=== PATIENT | male | born 1940 | race Two or more races ===

== ENCOUNTER 2023-05-05 13:51 | Emergency (ER) | payer OTHER ==
[~2023-05-05] VITALS: Ht 172.7 cm; Wt 72.6 kg
[2023-05-05] MEDS ORDERED: ARICEPT5 MG PO (14:28)
[2023-05-05 16:19] LABS: PH,URINE 7.5 (5.0-8.0); URINE APPEARANCE Clear; URINE BILIRRUBIN Negative (NEGATIVE); URINE BLOOD Negative; URINE COLOR Yellow; URINE GLUCOSE Negative (NEGATIVE); URINE LEUKOCYTE Negative; URINE NITRATE Negative; URINE PROTEIN Negative (NEGATIVE); URINE UROBILINOGEN 0.2 E.U./dl
[2023-05-05 16:21] LABS: HEMATOCRIT 46.5 % (39.0-48.0); HEMOGLOBIN 15.9 g/dL (13-16.00); MEAN CELL VOLUME 92.9 fL (80.0-100.00); MEAN CORPUSCULAR HEMOGLOBIN 31.8 pg (27.00-32.0); MEAN CORPUSCULAR HGB CONC 34.2 g/dl (32.0-36.0); PLATELET COUNT 217 K/uL (150-450)
[2023-05-05 16:23] LABS: URINE BACTERIA 26.3 uL (0.0-1933); URINE EPITHELIAL CELLS 0.3 uL (0.0-38.8); URINE WBC 0.6 uL (0.0-23.2)
[2023-05-05 16:37] LABS: CALCIUM 9.2 mg/dL (8.5-10.1); CREATININE SERUM 1.13 mg/dL (0.70-1.30); GFR 62.44; POTASSIUM 3.96 mEq/L (3.5-5.1)
== END 2023-05-05 19:27 ==
LOC: ER 13:52
PROVIDERS: Nurse Practitioner Family
DX: S00.93XA Contusion of unspecified part of head, initial encounter (principal); W19.XXXA Unspecified fall, initial encounter; Y93.9 Activity, unspecified; Y92.018 Other place in single-family (private) house as the place of occurrence of the external cause; Y99.9 Unspecified external cause status; E11.9 Type 2 diabetes mellitus without complications; Z79.84 Long term (current) use of oral hypoglycemic drugs; G30.9 Alzheimer's disease, unspecified; F02.80 Dementia in other diseases classified elsewhere, unspecified severity, without behavioral disturbance, psychotic disturbance, mood disturbance, and anxiety; I50.9 Heart failure, unspecified

== ENCOUNTER 2023-11-08 19:02 | Inpatient (IN) | payer OTHER ==
[~2023-11-08] VITALS: Ht 152.4 cm; Wt 68.0 kg
[~2023-11-08 19:02] MED LIST: ARICEPT5 MG PO
--- NOTE | 2023-11-08 19:18 | NUR ---
SE RECIBE MASCULINO ALERTA EN COMPANIA DE HIJA QUIEN VERBALIZA "EL DEDO SE PUSO KAREY HACE DOS CRUZ". SE OBSERVA PHAM DEDO DE PIE IZQ COLOR KAREY CON BORDES ENROJECIDOS Y CALIENTES AL TACTO. SE ROSANA S/V Y SE UBICA.
[2023-11-08] MEDS ORDERED: VANCOMYCIN HCL 1,000 MG VIAL ONE (19:59)
[2023-11-08] MEDS ORDERED: 0.9 % SODIUM CHLORIDE 500 ML IV ONE (20:00)
[2023-11-08] MEDS ORDERED: VANCOMYCIN HCL 1,000 MG VIAL IV ONE (20:00)
--- NOTE | 2023-11-08 20:02 | NUR ---
PTE ALERTA Y ORIENTADO X3, RN FRY ORIENTA SOBRE TX MEDICO Y EL MISMO REFIERE ACEPTAR. CANALIZA Y COLECTA MUESTRAS DE LAB BAJO MEDIDAS ASEPTICAS. ADMINISTRA MED SAM ORDEN MEDICA Y PTE NO PRESENTA REACCION. REALIZA EKG Y PRESENTA A . PENDIENTE A REALIZAR XRAY.
[2023-11-08 20:34] LABS: HEMATOCRIT 51.3 % (39.0-48.0); HEMOGLOBIN 17.3 g/dL (13-16.00); MEAN CELL VOLUME 95.1 fL (80.0-100.00); MEAN CORPUSCULAR HEMOGLOBIN 32.1 pg (27.00-32.0); MEAN CORPUSCULAR HGB CONC 33.8 g/dl (32.0-36.0); PLATELET COUNT 272 K/uL (150-450); RED BLOOD COUNT 5.39 M/uL (4.00-6.00); RED CELL DISTRIBUTION WIDTH 14.1 % (11.5-14.5)
[2023-11-08 20:39] LABS: ERYTHROCYTE SEDIMENTATION RATE 6 mm/hr
[2023-11-08 21:01] LABS: ALBUMIN 3.5 gm/dL (3.4-5.0); BILIRUBIN TOTAL 0.95 mg/dL (0.3-1.2); CALCIUM 9.5 mg/dL (8.5-10.1); CREATININE SERUM 0.83 mg/dL (0.70-1.30); GFR 88.92; GLOBULINA 4.5 G/DL (2.4-3.5); POTASSIUM 5.02 mEq/L (3.5-5.1)
[2023-11-08 21:02] LABS: ABG PH 7.441 (7.35-7.45); ABG PO2 78.1 mmHg (80-100); ABG pCO2 37.9 mmHg (35-45); BASE EXCESS 1.3 mmol/l; BICARBONATE 25.2 mmol/l (23-25); Tco2 26.4 mmol/l
[2023-11-08 21:11] LABS: allen test SATISFACTORY; o2 21 %; puncture site RADIAL RIGHT
[2023-11-08 21:13] LABS: C-REACTIVE PROTEIN 2.01 MG/DL (0.00-0.29)
[2023-11-08] MEDS ORDERED: ENOXAPARIN SODIUM 40 MG/0.4 ML SYRINGE SUBCUTANEO SCH (21:43)
[2023-11-08] MEDS ORDERED: DEXTROSE 50 % IN WATER 0.5 G/ML DISP.SYRIN IV PRN (21:45)
[2023-11-08] MEDS ORDERED: FUROsemide 20 MG/2 ML VIAL IV SCH (21:45)
[2023-11-08] MEDS ORDERED: INSULIN LISPRO 1,000 UNIT/10 ML UNITS SUBCUTANEO PRN (21:45)
[2023-11-08] MEDS ORDERED: ACETAMINOPHEN 500 MG GEL..CAP PO PRN (21:45)
[2023-11-08 22:02] LABS: ALT/SGPT 51 U/L (12-78); AST/SGOT 45 U/L (15-37); LDH 218 U/L (87-241); PHOSPHOKINASE CREATININE 61 U/L (39-308)
[2023-11-08] MEDS ORDERED: FUROsemide 20 MG/2 ML VIAL ONE (22:27)
[2023-11-08] MEDS ORDERED: ENOXAPARIN SODIUM 40 MG/0.4 ML SYRINGE SUBCUTANEO ONE (22:28)
[2023-11-09] MEDS ORDERED: CEFEPIME HCL 2,000 MG VIAL ONE (00:43)
[2023-11-09] MEDS ORDERED: CEFEPIME HCL 2,000 MG in 0.9 % SODIUM CHLORIDE 100 ML IV SCH ×2 (01:00→21:00)
[2023-11-09 01:13] LABS: INR 1.11
[2023-11-09] MEDS ORDERED: 0.9 % SODIUM CHLORIDE 1,000 ML IV SCH ×2 (07:15)
[2023-11-09] MEDS ORDERED: SODIUM CHLORIDE 0.45 % 1,000 ML IV SCH (07:15)
[2023-11-09 07:57] VITALS: O2SAT 96
[2023-11-09 08:22] VITALS: BP 145/86; O2SAT 96
[2023-11-09] MEDS ORDERED: MEMANTINE HCL 10 MG TABLET PO SCH (09:00)
[2023-11-09] MEDS ORDERED: FAMOTIDINE/PF 20 MG in 0.9 % SODIUM CHLORIDE 8 ML IV PUSH SCH (09:00)
[2023-11-09] MEDS ORDERED: LOSARTAN POTASSIUM 50 MG TABLET PO SCH (09:00)
[2023-11-09] MEDS ORDERED: VANCOMYCIN HCL 1,000 MG VIAL IV SCH (09:00)
[2023-11-09] MEDS ORDERED: LOSARTAN POTASSIUM 100 MG TABLET PO SCH (09:00)
[2023-11-09 12:53] VITALS: O2SAT 94
[2023-11-09 16:00] VITALS: BP 146/90; O2SAT 97
[2023-11-09 16:34] VITALS: O2SAT 78
[2023-11-09] MEDS ORDERED: DONEPEZIL HCL 5 MG TABLET PO SCH (17:00)
[2023-11-09 19:33] VITALS: O2SAT 97
[2023-11-10] VITALS (8 sets, daily range): BP systolic 138–160; BP diastolic 81–90; O2SAT 90–100
[2023-11-10 07:23] LABS: HEMOGLOBIN 16.3 g/dL (13-16.00); MEAN CELL VOLUME 94.6 fL (80.0-100.00); MEAN CORPUSCULAR HEMOGLOBIN 32.1 pg (27.00-32.0); MEAN CORPUSCULAR HGB CONC 33.9 g/dl (32.0-36.0); PLATELET COUNT 231 K/uL (150-450); RED BLOOD COUNT 5.08 M/uL (4.00-6.00); RED CELL DISTRIBUTION WIDTH 13.9 % (11.5-14.5)
[2023-11-10 09:06] LABS: ALBUMIN 3.2 gm/dL (3.4-5.0); BILIRUBIN TOTAL 0.94 mg/dL (0.3-1.2); CALCIUM 8.7 mg/dL (8.5-10.1); CREATININE SERUM 0.7 mg/dL (0.70-1.30); GFR 108.23; GLOBULINA 3.8 G/DL (2.4-3.5); MAGNESIUM 1.9 mg/dL (1.8-2.4); POTASSIUM 3.79 mEq/L (3.5-5.1)
[2023-11-10 09:07] LABS: C-REACTIVE PROTEIN 2.2 MG/DL (0.00-0.29)
[2023-11-10 09:27] LABS: MYCOPLASMA PNEUMONIAE IGM NON REACTIVE (NO REACTIVE)
[2023-11-10] MEDS ORDERED: AMLODIPINE BESYLATE 5 MG TABLET PO SCH (17:00)
[2023-11-10 21:40] LABS: PLEURAL FLUID APPEARANCE CRYSTAL CLEAR; PLEURAL FLUID COLOR YELLOW
[2023-11-10 21:43] LABS: TP PLEURAL FLUID 3.2 g/dl
[2023-11-10 21:59] LABS: MONONUCLEAR 92 %; POLYMORPHONUCLEAR 8 %
[2023-11-11] VITALS (8 sets, daily range): BP systolic 104–145; BP diastolic 72–81; O2SAT 96–100
[2023-11-11] MEDS ORDERED: MEMANTINE HCL5 MG PO (08:02)
[2023-11-11] MEDS ORDERED: LORazepam 2 MG/ML VIAL IV PRN (08:30)
[2023-11-11] MEDS ORDERED: RISPERIDONE 1 MG TABLET PO SCH (09:00)
[2023-11-11] MEDS ORDERED: BUMETANIDE 1 MG TABLET PO SCH (09:00)
[2023-11-11] MEDS ORDERED: PANTOPRAZOLE SODIUM 40 MG TABLET.DR PO SCH (09:00)
[2023-11-11] MEDS ORDERED: METRONIDAZOLE/SODIUM CHLORIDE 100 ML IV SCH (17:00)
[2023-11-11] MEDS ORDERED: AMPICILLIN SODIUM/SULBACTAM NA 3,000 MG VIAL IV SCH (18:00)
[2023-11-11] MEDS ORDERED: CIPROFLOXACIN IN 5 % DEXTROSE 400 MG/200 ML PIGGYBAG IV SCH (21:00)
[2023-11-12] VITALS (7 sets, daily range): BP systolic 128–136; BP diastolic 68–79; O2SAT 96–100
[2023-11-13] VITALS (7 sets, daily range): BP systolic 129–155; BP diastolic 61–88; O2SAT 96–100
[2023-11-13 10:16] LABS: ABG PH 7.506 (7.35-7.45); ABG PO2 190.1 mmHg (80-100); ABG pCO2 40.3 mmHg (35-45); BASE EXCESS 7.5 mmol/l; BICARBONATE 31.2 mmol/l (23-25); SaO2 99.8 %; Tco2 32.4 mmol/l
[2023-11-13 10:30] LABS: allen test SATISFACTORY; o2 36 %; puncture site RADIAL LEFT
[2023-11-13 10:35] LABS: ALBUMIN 2.6 gm/dL (3.4-5.0); CALCIUM 8.8 mg/dL (8.5-10.1); CREATININE SERUM 0.65 mg/dL (0.70-1.30); GFR 117.9; MAGNESIUM 1.8 mg/dL (1.8-2.4); PHOSPHOROUS 3.1 mg/dL (2.5-4.9); POTASSIUM 3.53 mEq/L (3.5-5.1)
[2023-11-14 08:00] VITALS: BP 128/70; O2SAT 97
[2023-11-14 13:15] VITALS: O2SAT 96
[2023-11-14 16:33] VITALS: BP 159/75; O2SAT 98
[2023-11-14 18:12] VITALS: O2SAT 98
[2023-11-14 21:41] VITALS: O2SAT 99
[2023-11-15 00:52] VITALS: BP 149/78; O2SAT 97; O2SAT 98
[2023-11-15 03:35] VITALS: O2SAT 100
[2023-11-15 08:55] VITALS: BP 128/74; O2SAT 99
[2023-11-15 09:38] VITALS: O2SAT 100
[2023-11-15 13:55] VITALS: O2SAT 99
[2023-11-15] MEDS ORDERED: CHLORHEXIDINE GLUCONATE 120 ML BOTTLE TOP ONE (15:25)
[2023-11-15] MEDS ORDERED: GABAPENTIN 300 MG CAPSULE PO SCH (17:50)
[2023-11-15] MEDS ORDERED: MORPHINE SULFATE 4 MG/ML CARTRIDGE IV SCH (18:00)
[2023-11-15] MEDS ORDERED: KETOROLAC TROMETHAMINE 30 MG VIAL IV SCH (18:00)
[2023-11-15] MEDS ORDERED: CIPROFLOXACIN IN 5 % DEXTROSE 400 MG/200 ML PIGGYBAG IV ONE (21:49)
[2023-11-15] MEDS ORDERED: AMPICILLIN SODIUM/SULBACTAM NA 3,000 MG VIAL ONE (21:50)
[2023-11-15 22:46] LABS: ABG PH 7.482 (7.35-7.45); ABG PO2 443.5 mmHg (80-100); ABG pCO2 32.7 mmHg (35-45); BASE EXCESS 1.2 mmol/l; BICARBONATE 23.9 mmol/l (23-25); Tco2 24.9 mmol/l
[2023-11-15 22:57] LABS: allen test SATISFACTORY; o2 100 %; puncture site RADIAL RIGHT
[2023-11-16] MEDS ORDERED: KETOROLAC TROMETHAMINE 30 MG VIAL ONE ×3 (01:45→12:26)
[2023-11-16 01:50] LABS: ABG PH 7.481 (7.35-7.45); ABG PO2 160.8 mmHg (80-100); ABG pCO2 34.8 mmHg (35-45); BASE EXCESS 2.3 mmol/l; SaO2 99.6 %
[2023-11-16 01:51] LABS: BICARBONATE 25.4 mmol/l (23-25); Tco2 26.4 mmol/l; allen test SATISFACTORY; o2 100 %; puncture site RADIAL LEFT
[2023-11-16] MEDS ORDERED: METRONIDAZOLE/SODIUM CHLORIDE 500 MG/100 ML PIGGYBACK IV ONE (02:02)
[2023-11-16] MEDS ORDERED: AMPICILLIN SODIUM/SULBACTAM NA 3,000 MG VIAL ONE ×2 (02:06→06:18)
[2023-11-16] MEDS ORDERED: MORPHINE SULFATE 4 MG/ML VIAL IV ONE ×3 (03:00→07:30)
[2023-11-16] MEDS ORDERED: KETOROLAC TROMETHAMINE 30 MG VIAL IV ONE ×3 (06:00→12:30)
[2023-11-16 07:28] LABS: HEMATOCRIT 44.3 % (39.0-48.0); MEAN CELL VOLUME 95.6 fL (80.0-100.00); MEAN CORPUSCULAR HEMOGLOBIN 32.4 pg (27.00-32.0); MEAN CORPUSCULAR HGB CONC 33.8 g/dl (32.0-36.0); PLATELET COUNT 251 K/uL (150-450); RED BLOOD COUNT 4.63 M/uL (4.00-6.00); RED CELL DISTRIBUTION WIDTH 13.7 % (11.5-14.5)
[2023-11-16 08:22] LABS: ABG PH 7.492 (7.35-7.45); ABG PO2 203.7 mmHg (80-100); ABG pCO2 34.3 mmHg (35-45); BASE EXCESS 2.8 mmol/l; BICARBONATE 25.7 mmol/l (23-25); SaO2 99.8 %; Tco2 26.8 mmol/l
[2023-11-16 08:32] LABS: ALBUMIN 2.4 gm/dL (3.4-5.0); BILIRUBIN TOTAL 1.83 mg/dL (0.3-1.2); CALCIUM 8.2 mg/dL (8.5-10.1); CREATININE SERUM 0.78 mg/dL (0.70-1.30); GFR 95.53; GLOBULINA 3.3 G/DL (2.4-3.5); POTASSIUM 3.16 mEq/L (3.5-5.1); TOTAL PROTEIN 5.7 gm/dL (6.4-8.2)
[2023-11-16 09:05] LABS: allen test SATISFACTORY; o2 50 %; puncture site RADIAL RIGHT
[2023-11-16 14:46] VITALS: BP 122/74; O2SAT 100
[2023-11-16 15:29] VITALS: BP 123/68; O2SAT 100
[2023-11-16 20:00] VITALS: BP 146/91; O2SAT 100
[2023-11-16 20:34] LABS: MAGNESIUM 1.9 mg/dL (1.8-2.4); PHOSPHOROUS 2.1 mg/dL (2.5-4.9)
[2023-11-16] MEDS ORDERED: POTASSIUM PHOS,M-BASIC-D-BASIC 15 MM in 0.9 % SODIUM CHLORIDE 250 ML IV ONE (20:45)
[2023-11-16] MEDS ORDERED: POTASSIUM CHLORIDE 20MEQ/100ML H2O PB IV ONE (20:45)
[2023-11-16 23:55] VITALS: BP 136/95; O2SAT 100
[2023-11-17] MEDS ORDERED: CHLORHEXIDINE GLUCONATE 15ML BRUSH KIT MM SCH (01:00)
[2023-11-17 04:06] VITALS: BP 114/66; O2SAT 100
[2023-11-17 06:44] LABS: HEMATOCRIT 46.6 % (39.0-48.0); HEMOGLOBIN 15.7 g/dL (13-16.00); MEAN CELL VOLUME 95.2 fL (80.0-100.00); MEAN CORPUSCULAR HGB CONC 33.6 g/dl (32.0-36.0); PLATELET COUNT 257 K/uL (150-450)
[2023-11-17 06:58] VITALS: BP 129/70; O2SAT 100
[2023-11-17 08:02] LABS: ABG PH 7.541 (7.35-7.45); ABG PO2 155.6 mmHg (80-100); ABG pCO2 30.9 mmHg (35-45); BASE EXCESS 4.1 mmol/l; BICARBONATE 25.8 mmol/l (23-25); SaO2 99.6 %; Tco2 26.8 mmol/l
[2023-11-17 08:12] LABS: allen test SATISFACTORY; o2 40 %; puncture site RADIAL LEFT
[2023-11-17] MEDS ORDERED: FAMOTIDINE/PF 20 MG/2 ML VIAL IV SCH (09:00)
[2023-11-17] MEDS ORDERED: CARBOXYMETHYLCELLULOSE SODIUM 1 EACH DROPERETTE OP SCH (09:00)
[2023-11-17] MEDS ORDERED: BUMETANIDE 2.5 MG/10 ML VIAL IV SCH (09:00)
[2023-11-17 09:32] LABS: ABG PH 7.516 (7.35-7.45); ABG PO2 173.1 mmHg (80-100); ABG pCO2 32.1 mmHg (35-45); BASE EXCESS 3.1 mmol/l; BICARBONATE 25.4 mmol/l (23-25); SaO2 99.7 %; Tco2 26.4 mmol/l
[2023-11-17 10:26] LABS: allen test SATISFACTORY; o2 40 %; puncture site RADIAL LEFT
[2023-11-17 12:00] VITALS: BP 120/68; O2SAT 100
[2023-11-17 15:52] VITALS: BP 120/68; O2SAT 100
[2023-11-17 20:00] VITALS: BP 130/72; O2SAT 100
[2023-11-17 23:08] VITALS: BP 107/71; O2SAT 100
[2023-11-18 07:11] VITALS: BP 137/72; O2SAT 10
[2023-11-18 08:20] LABS: ABG PH 7.503 (7.35-7.45); ABG PO2 166.6 mmHg (80-100); ABG pCO2 32.3 mmHg (35-45); BASE EXCESS 2.4 mmol/l; BICARBONATE 24.8 mmol/l (23-25); SaO2 99.6 %; Tco2 25.8 mmol/l
[2023-11-18 08:21] LABS: allen test SATISFACTORY; o2 35 %; puncture site RADIAL RIGHT
[2023-11-18 09:39] LABS: ABG PO2 167.4 mmHg (80-100); ABG pCO2 32.8 mmHg (35-45); BASE EXCESS 1.7 mmol/l; SaO2 99.6 %
[2023-11-18 09:40] LABS: BICARBONATE 24.4 mmol/l (23-25); Tco2 25.4 mmol/l; allen test SATISFACTORY; o2 35 %; puncture site RADIAL RIGHT
[2023-11-18 10:55] LABS: ALBUMIN 2.3 gm/dL (3.4-5.0); CREATININE SERUM 0.61 mg/dL (0.70-1.30); GFR 126.86; PHOSPHOROUS 2.9 mg/dL (2.5-4.9); POTASSIUM 3.1 mEq/L (3.5-5.1)
[2023-11-18 12:00] VITALS: BP 135/84; O2SAT 100
[2023-11-18] MEDS ORDERED: AMPICILLIN SODIUM/SULBACTAM NA 3,000 MG VIAL IV SCH (14:00)
[2023-11-18 15:42] VITALS: BP 135/84; O2SAT 100
[2023-11-18] MEDS ORDERED: POTASSIUM CHLORIDE IN WATER 40 MEQ/100 ML PIGGYBAG IV SCH (17:58)
[2023-11-18] MEDS ORDERED: METOPROLOL TARTRATE 25 MG TABLET PO SCH (19:04)
[2023-11-18 20:19] VITALS: BP 143/73; O2SAT 100
[2023-11-18 23:33] VITALS: BP 137/93; O2SAT 100
[2023-11-19 04:00] VITALS: BP 121/64; O2SAT 100
[2023-11-19 06:51] LABS: HEMATOCRIT 39.5 % (39.0-48.0); HEMOGLOBIN 13.9 g/dL (13-16.00); MEAN CELL VOLUME 92.5 fL (80.0-100.00); MEAN CORPUSCULAR HEMOGLOBIN 32.5 pg (27.00-32.0); MEAN CORPUSCULAR HGB CONC 35.2 g/dl (32.0-36.0); PLATELET COUNT 255 K/uL (150-450); RED BLOOD COUNT 4.27 M/uL (4.00-6.00); RED CELL DISTRIBUTION WIDTH 14.1 % (11.5-14.5)
[2023-11-19 06:53] LABS: ALBUMIN 2.2 gm/dL (3.4-5.0); CALCIUM 8.3 mg/dL (8.5-10.1); CREATININE SERUM 0.64 mg/dL (0.70-1.30); GFR 120.03; MAGNESIUM 1.8 mg/dL (1.8-2.4); PHOSPHOROUS 2.1 mg/dL (2.5-4.9)
[2023-11-19 06:56] LABS: POTASSIUM 2.94 mEq/L (3.5-5.1)
[2023-11-19 07:19] VITALS: BP 117/71; O2SAT 100
[2023-11-19] MEDS ORDERED: ALBUTEROL SULFATE 3 ML/2.5 MG AMPUL.NEB IH NR (09:00)
[2023-11-19] MEDS ORDERED: BUMETANIDE 1 MG TABLET PO SCH (09:00)
[2023-11-19] MEDS ORDERED: RACEPINEPHRINE HCL 0.5 ML AMPUL IH NR (09:00)
[2023-11-19] MEDS ORDERED: POTASSIUM PHOS,M-BASIC-D-BASIC 18 MM in 0.9 % SODIUM CHLORIDE 250 ML IV NR (09:30)
[2023-11-19 09:58] LABS: ABG PO2 157.3 mmHg (80-100); ABG pCO2 36.9 mmHg (35-45); BASE EXCESS 4.2 mmol/l; BICARBONATE 27.5 mmol/l (23-25); SaO2 99.5 %; Tco2 28.6 mmol/l
[2023-11-19 09:59] LABS: allen test SATISFACTORY; o2 35 %; puncture site RADIAL RIGHT
[2023-11-19 10:52] LABS: ABG PH 7.505 (7.35-7.45); ABG PO2 133.3 mmHg (80-100); ABG pCO2 34.7 mmHg (35-45); BASE EXCESS 3.9 mmol/l; BICARBONATE 26.7 mmol/l (23-25); SaO2 99.3 %; Tco2 27.8 mmol/l
[2023-11-19 11:32] LABS: allen test SATISFACTORY; o2 36 %; puncture site RADIAL RIGHT
[2023-11-19 12:00] VITALS: BP 137/77; O2SAT 100
[2023-11-19] MEDS ORDERED: POTASSIUM CHLORIDE IN WATER 40 MEQ/100 ML PIGGYBAG IV ONE (14:10)
[2023-11-19 16:56] VITALS: BP 135/88; O2SAT 99
[2023-11-19 20:28] VITALS: BP 139/90; O2SAT 100
[2023-11-19 23:26] VITALS: BP 129/82; O2SAT 98
[2023-11-20 04:00] VITALS: BP 127/78; O2SAT 100
[2023-11-20 07:36] VITALS: BP 136/89; O2SAT 100
[2023-11-20 15:26] VITALS: BP 129/76; O2SAT 100
[2023-11-20 23:21] VITALS: BP 111/67; O2SAT 100
[2023-11-21 04:00] VITALS: BP 115/80; O2SAT 100
[2023-11-21 07:23] VITALS: BP 103/83; O2SAT 100
[2023-11-21 07:34] LABS: ALBUMIN 2.2 gm/dL (3.4-5.0); BILIRUBIN TOTAL 0.94 mg/dL (0.3-1.2); CALCIUM 8.1 mg/dL (8.5-10.1); CREATININE SERUM 0.53 mg/dL (0.70-1.30); GFR 149.21; GLOBULINA 2.9 G/DL (2.4-3.5); MAGNESIUM 1.7 mg/dL (1.8-2.4); PHOSPHOROUS 2.1 mg/dL (2.5-4.9); TOTAL PROTEIN 5.1 gm/dL (6.4-8.2)
[2023-11-21 07:46] LABS: POTASSIUM 2.94 mEq/L (3.5-5.1)
[2023-11-21 07:48] LABS: HEMATOCRIT 39.3 % (39.0-48.0); HEMOGLOBIN 13.4 g/dL (13-16.00); MEAN CELL VOLUME 95.5 fL (80.0-100.00); MEAN CORPUSCULAR HEMOGLOBIN 32.7 pg (27.00-32.0); MEAN CORPUSCULAR HGB CONC 34.2 g/dl (32.0-36.0); PLATELET COUNT 284 K/uL (150-450); RED BLOOD COUNT 4.11 M/uL (4.00-6.00); RED CELL DISTRIBUTION WIDTH 13.5 % (11.5-14.5)
[2023-11-21] MEDS ORDERED: POTASSIUM PHOS,M-BASIC-D-BASIC 18 MM in 0.9 % SODIUM CHLORIDE 250 ML IV NR (11:15)
[2023-11-21] MEDS ORDERED: MAGNESIUM SULFATE/D5W 100 ML IV SCH (11:45)
[2023-11-21 12:00] VITALS: BP 128/79; O2SAT 100
[2023-11-21 15:28] VITALS: BP 128/79; O2SAT 100
[2023-11-21 15:52] VITALS: BP 125/79; O2SAT 100
[2023-11-21 23:22] VITALS: BP 124/71; O2SAT 100
[2023-11-22 04:00] VITALS: BP 113/74; O2SAT 100
[2023-11-22 07:15] VITALS: BP 127/65; O2SAT 98
[2023-11-22] MEDS ORDERED: DEXTROSE 5 % IN WATER 1,000 ML IV SCH (09:30)
[2023-11-22 11:18] LABS: CALCIUM 8.2 mg/dL (8.5-10.1); CREATININE SERUM 0.62 mg/dL (0.70-1.30); GFR 124.51; POTASSIUM 3.18 mEq/L (3.5-5.1)
[2023-11-22 12:00] VITALS: BP 129/68; O2SAT 100
[2023-11-22] MEDS ORDERED: POTASSIUM CHLORIDE IN WATER 40 MEQ/100 ML PIGGYBAG IV NR (14:15)
[2023-11-22] MEDS ORDERED: MAGNESIUM SULFATE/D5W 1GM/100ML PIGGYBAG IV NR (14:15)
[2023-11-22 15:33] VITALS: BP 116/74; O2SAT 100
[2023-11-22 18:55] VITALS: BP 111/79; O2SAT 96
[2023-11-23 00:29] VITALS: BP 121/68; O2SAT 97
[2023-11-23 07:30] VITALS: BP 108/70; O2SAT 99
[2023-11-23] MEDS ORDERED: POTASSIUM CHLORIDE IN WATER 40 MEQ/100 ML PIGGYBAG IV SCH (07:38)
[2023-11-23 16:00] VITALS: BP 134/87; O2SAT 93
[2023-11-24] VITALS: BP 145/76; O2SAT 99
[2023-11-24 07:03] LABS: ALBUMIN 2.4 gm/dL (3.4-5.0); BILIRUBIN TOTAL 0.71 mg/dL (0.3-1.2); CREATININE SERUM 0.63 mg/dL (0.70-1.30); GFR 122.23; POTASSIUM 4.7 mEq/L (3.5-5.1); TOTAL PROTEIN 5.4 gm/dL (6.4-8.2)
[2023-11-24 10:00] VITALS: BP 131/62; O2SAT 94
[2023-11-24 15:04] LABS: ABG PH 7.463 (7.35-7.45); ABG PO2 78.7 mmHg (80-100); ABG pCO2 43.5 mmHg (35-45); BASE EXCESS 5.9 mmol/l; BICARBONATE 30.4 mmol/l (23-25); SaO2 96.5 %; Tco2 31.8 mmol/l; allen test SATISFACTORY; puncture site RADIAL RIGHT
[2023-11-24 15:05] LABS: o2 21 %
[2023-11-24 16:00] VITALS: BP 106/61; O2SAT 95
[2023-11-25 00:57] VITALS: BP 115/64; O2SAT 100
[2023-11-25] MEDS ORDERED: AMLODIPINE BESYL5 MG PO (07:39)
[2023-11-25] MEDS ORDERED: INSULIN LI100 UNIT/1 SUBCUTANEO (07:40)
[2023-11-25] MEDS ORDERED: LOPRESSOR25 MG PO (07:40)
[2023-11-25] MEDS ORDERED: PANTOPRAZOLE SO40 MG PO (07:40)
[2023-11-25] MEDS ORDERED: LOSARTAN POTAS100 MG PO (07:40)
[2023-11-25] MEDS ORDERED: ISOSORBIDE MONO30 M2 PO (07:41)
[2023-11-25] MEDS ORDERED: FUROSEMIDE20 MG PO (07:41)
[2023-11-25] MEDS ORDERED: MUPIROCIN22 GM TOP (07:42)
[2023-11-25] MEDS ORDERED: CEFADROXIL500 MG PO (07:43)
[2023-11-25 08:53] VITALS: BP 134/80; O2SAT 91
[2023-11-25] MEDS ORDERED: ELIQUIS5 MG PO (09:24)
[2023-11-25] MEDS ORDERED: SILVER SULFADIAZINE 50 GM JAR TOP SCH (10:15)
[2023-11-25] MEDS ORDERED: NYSTATIN 30 GM CREAM.GM. TOP SCH (10:15)
[2023-11-25] MEDS ORDERED: ZINC OXIDE 30 GM TUBE TOP SCH (10:15)
[2023-11-26] MEDS ORDERED: ZINC OXIDE 30 GM,NYSTATIN 30 GM,SILVER SULFADIAZINE 50 GM TOP SCH (09:00)
== END 2023-11-25 13:27 | DRG 239 ==
LOC: ER 19:02 → SURG 21:53 → SEC-K 21:53 → SURG 11-09 00:06 → O/R 11-16 10:25 → ICU 11-16 14:31 → SURG 11-22 18:53
PROVIDERS: Anesthesiology; Anesthesiology Pain Medicine; Internal Medicine; Internal Medicine Infectious Disease; Nurse Practitioner Family; Radiology Vascular & Interventional Radiology; Specialist; ADMIT Internal Medicine; ATTEND Internal Medicine
PROC: B44HZZZ Ultrasonography of Bilateral Lower Extremity Arteries (ICD-10-PCS; 2023-11-08)
PROC: BW24ZZZ Computerized Tomography (CT Scan) of Chest and Abdomen (ICD-10-PCS; 2023-11-08)
PROC: B24BZZZ Ultrasonography of Heart with Aorta (ICD-10-PCS; 2023-11-09)
PROC: 4A12X4Z Monitoring of Cardiac Electrical Activity, External Approach (ICD-10-PCS; 2023-11-09)
PROC: 0W993ZX Drainage of Right Pleural Cavity, Percutaneous Approach, Diagnostic (ICD-10-PCS; 2023-11-10)
PROC: BW28ZZZ Computerized Tomography (CT Scan) of Head (ICD-10-PCS; 2023-11-13)
PROC: 0BH17EZ Insertion of Endotracheal Airway into Trachea, Via Natural or Artificial Opening (ICD-10-PCS; 2023-11-15)
PROC: 5A1945Z Respiratory Ventilation, 24-96 Consecutive Hours (ICD-10-PCS; 2023-11-15)
PROC: 0Y6J0Z2 Detachment at Left Lower Leg, Mid, Open Approach (ICD-10-PCS; principal; 2023-11-15 16:00)
PROC: BW24ZZZ Computerized Tomography (CT Scan) of Chest and Abdomen (ICD-10-PCS; 2023-11-16)
PROC: 0W993ZZ Drainage of Right Pleural Cavity, Percutaneous Approach (ICD-10-PCS; 2023-11-17)
PROC: 0W993ZZ Drainage of Right Pleural Cavity, Percutaneous Approach (ICD-10-PCS; 2023-11-19)
PROC: 02HV33Z Insertion of Infusion Device into Superior Vena Cava, Percutaneous Approach (ICD-10-PCS; 2023-11-19)
DX: E11.52 Type 2 diabetes mellitus with diabetic peripheral angiopathy with gangrene (principal); J95.821 Acute postprocedural respiratory failure; E22.2 Syndrome of inappropriate secretion of antidiuretic hormone; E85.4 Organ-limited amyloidosis; I43 Cardiomyopathy in diseases classified elsewhere; J90 Pleural effusion, not elsewhere classified; I70.91 Generalized atherosclerosis; L03.032 Cellulitis of left toe; I77.1 Stricture of artery; B95.2 Enterococcus as the cause of diseases classified elsewhere; B96.89 Other specified bacterial agents as the cause of diseases classified elsewhere; G30.9 Alzheimer's disease, unspecified; F02.80 Dementia in other diseases classified elsewhere, unspecified severity, without behavioral disturbance, psychotic disturbance, mood disturbance, and anxiety; Z74.01 Bed confinement status; I48.91 Unspecified atrial fibrillation; I27.20 Pulmonary hypertension, unspecified; I07.1 Rheumatic tricuspid insufficiency; I50.810 Right heart failure, unspecified; E87.6 Hypokalemia; I11.0 Hypertensive heart disease with heart failure